=== PATIENT | female | born 2000 ===

== ENCOUNTER → 2020-12-16 | Outpatient (CLI) | payer SELFPAY ==
--- NOTE | 2020-12-16 19:08 | Diagnostic Imaging Report ---
EXAMINATION: Lumbosacral spine at 4:47 p.m. INDICATION: Leg and back pain. Five views were obtained. There are no prior studies available for comparison. FINDINGS: The lateral view shows the vertebral body heights and alignment to be generally within normal limits. There is very mild narrowing of the disc spaces at L4-L5 and L5-S1. The other intervertebral spaces seem fairly well maintained. The oblique views fail to show any sign of a pars defect. There is no fracture or acute bony abnormality appreciated. There is no paraspinal mass noted. There is mild symmetrical sclerosis of the sacroiliac joints. IMPRESSION: 1. There is no evidence for an acute bony abnormality. 2. There is very mild degenerative disc disease at L4-L5 and L5-S1. Dictated by: Dictated on workstation # [id number]
== END ==
LOC: RAD 16:02
PROVIDERS: ATTEND Family Medicine Sports Medicine
DX: M47.27 Other spondylosis with radiculopathy, lumbosacral region (principal)
CPT/HCPCS: 72110

== ENCOUNTER 2020-12-23 14:44 | Emergency (ER) | payer SELFPAY ==
[~2020-12-23] VITALS: Ht 157.5 cm; Wt 109.0 kg
[2020-12-23] MEDS ORDERED: KETOROLAC 30 MG/ML VIAL IM ONE (15:30)
[2020-12-23] MEDS ORDERED: ORPHENADRINE 60 MG/2 ML (NORFLEX) AMP (ED ONLY) IM ONE (15:30)
--- NOTE | 2020-12-23 15:36 | ED Back Pain ---
General Chief Complaint: Lower Extremity Stated Complaint: R LEG AND BACK PAIN Nursing Triage Note: PT AMB TO [facility] W REPORTS OF PAIN THAT BEGINS IN RIGHT LOWER BACK AND RADIATES DOWN HER RIGHT LEG THAT HAS BEEN ONGOING FOR SEVERAL MONTHS. PT A&OX4, TEARFUL DURING TRIAGE. Source of Information: Patient, Old Records Exam Limitations: No Limitations History of Present Illness Date Seen by Provider: Dec 23, 2020 Time Seen by Provider: 15:11 Initial Comments This 20-year-old young lady presents to the emergency room with complaints of lower back pain with pain that radiates into the right leg with associated numbness or a "atjg-yks-vnreyrw" sensation. Pain started a couple months ago but has been becoming progressively worse, especially in the last couple of days. She has been treated with muscle relaxers, steroids, and buwv-dev-dzjbnmn pain medications without significant improvement. She has worsening pain with movement and bending. She was sent to us from the [facility] because of concerns for possible early cauda equina syndrome. Patient described recent development of difficulty controlling her bladder. She believes some of this is due to trouble getting to the restroom in time because of pain. However, she also states it is simply getting harder and harder to hold her urine in her bladder. She also reports a decrease in sphincter control over the past few days and has had some minor incontinence of stool and flatus. She is still ambulatory with a limp. She has some minor decrease in sensation and strength in the right lower extremity. She denies any trauma. She had x-rays performed at this facility demonstrating some degenerative disease at L4-L5 and L5-S1. Allergies and Home Medications Allergies Coded Allergies: Milk Containing Products (Verified Allergy, Unknown, 12/23/20) banana (Verified Allergy, Unknown, 12/23/20) Patient Home Medication List Home Medication List Reviewed: Yes Cephalexin (Cephalexin) 500 Mg Tablet, 500 MG PO TID Prescribed by: CHARLINE LARA on 12/23/20 1617 Review of Systems Constitutional: no symptoms reported EENTM: no symptoms reported Respiratory: no symptoms reported Cardiovascular: no symptoms reported Gastrointestinal: see HPI Genitourinary: see HPI : No LMP: Dec 12, 2020 Musculoskeletal: see HPI Skin: no symptoms reported Psychiatric/Neurological: See HPI Past Nffpmqj-Qqwnpo-Wicitd Hx Patient Social History Tobacco Use?: No Use of E-Cig and/or Vaping dev: No Substance use?: No Alcohol Use?: No Immunizations Up To Date Influenza Vaccine Up-to-Date: No; Not Current First/Initial COVID19 Vaccinat: MAY 2020 Second COVID19 Vaccination Enrico: JUNE 2020 COVID19 Vaccine 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 Past Medical History Surgery/Hospitalization HX: SX: T&A Surgeries: Yes Adenoidectomy, Tonsillectomy Respiratory: No Cardiac: No Neurological: No : No Last Menstrual Period: Dec 12, 2020 Reproductive Disorders: No Genitourinary: No Gastrointestinal: No Musculoskeletal: No Endocrine: No HEENT: No Cancer: No Psychosocial: Yes Sleep Difficulties Integumentary: No Physical Exam Vital Signs Vital Signs - First Documented 12/23/20 14:57 Temp 36.5 Pulse 107 Resp 22 B/P (MAP) 132/88 (103) Pulse Ox 99 O2 Delivery Room Air Capillary Refill : Less Than 3 Seconds Height, Weight, BMI Height: '" Weight: lbs. oz. kg; 43.00 BMI Method: General Appearance: WD/WN, Mild Distress, Obese HEENT: PERRL/EOMI, Normal ENT Inspection Neck: Normal Inspection Cardiovascular: Regular Rate, Rhythm, No Edema, No Murmur Respiratory: Lungs Clear, Normal Breath Sounds, No Accessory Muscle Use Gastrointestinal: Normal Bowel Sounds, Non Tender, Soft Extremity: Normal Inspection, Non Tender, No Pedal Edema Neurologic/Psychiatric: Alert, Oriented x3, Normal Mood/Affect, soft tile setter II-XII Norm as Tested, Other (No detectable motor weakness of the lower extremities. Slight decrease in sensation of the proximal right lower extremity.) Skin: Normal Color, Warm/Dry Progress/Results/Core Measures Results/Orders Lab Results Laboratory Tests Test 12/23/20 15:43 Range/Units Urine Color YELLOW Urine Clarity SL CLOUDY Urine pH 6.5 5-9 Urine Specific Hamilton 1.015 L 1.016-1.022 Urine Protein NEGATIVE NEGATIVE Urine Glucose (UA) NEGATIVE NEGATIVE Urine Ketones NEGATIVE NEGATIVE Urine Nitrite POSITIVE H NEGATIVE Urine Bilirubin NEGATIVE NEGATIVE Urine Urobilinogen 1.0 < = 1.0 MG/DL Urine Leukocyte Esterase NEGATIVE NEGATIVE Urine RBC (Auto) TRACE-I H NEGATIVE Urine RBC 5-10 H /HPF Urine WBC 0-2 /HPF Urine Squamous Epithelial Cells 0-2 /HPF Urine Crystals NONE /LPF Urine Bacteria LARGE H /HPF Urine Casts NONE /LPF Urine Mucus NEGATIVE /LPF Urine Culture Indicated YES My Orders Orders - CHARLINE REEVES MD Orphenadrine Inj (Ed Only) (Norflex Inje (12/23/20 15:30) Fentanyl Inj (Sublimaze Injection) (12/23/20 15:45) Urine Bedside (12/23/20 15:39) Ua Culture If Indicated (12/23/20 15:43) Urine Culture (12/23/20 15:43) Medications Given in ED Current Medications Medications Dose Ordered Sig/Marek Route Start Time Stop Time Status Last Admin Dose Admin Fentanyl Citrate 50 mcg ONCE ONCE IM 12/23/20 15:45 12/23/20 15:46 DC 12/23/20 15:49 50 MCG Orphenadrine Citrate 60 mg ONCE ONCE IM 12/23/20 15:30 12/23/20 15:31 DC 12/23/20 15:49 60 MG Vital Signs/I&O 12/23/20 14:57 Temp 36.5 Pulse 107 Resp 22 B/P (MAP) 132/88 (103) Pulse Ox 99 O2 Delivery Room Air Blood Pressure Mean: 103 Progress Progress Note : Progress Note Patient was seen and examined. She did have some complaints in her history that could be interpreted as symptoms of cauda equina, in particular the description of difficulty controlling bowel and bladder function. MRI services are not available at this facility this week. I am recommending the patient be transferred to an MRI capable facility. Dr. Guzman at [facility] in [place] has accepted transfer. Patient is receiving injections of Norflex and fentanyl to help control pain in route. Patient is being instructed to go directly to the [facility] ER without eating or drinking. Patient expressed understanding of these instructions. Prior x-ray images are being clouded. UA did demonstrate possible urinary tract infection with presence of bacteria and nitrates. There were no WBCs noted. We will prescribe antibiotics for the patient to start if she is not admitted at [facility]. Departure Impression Primary Impression: Low back pain Qualified Codes: M54.41 - Lumbago with sciatica, right side Additional Impressions: Anal sphincter incontinence Urinary incontinence Qualified Codes: R32 - Unspecified urinary incontinence Urinary tract infection Qualified Codes: N39.0 - Urinary tract infection, site not specified Disposition: T-TRM HOSP Condition: Improved Transfer Transfer Reason: Exceeds level of care Time Spoke to Accepting Phy: 15:35 Transfer Progress Notes Case discussed with Dr. Guzman in the [facility] who accepts transfer Transfer Time: 16:32 Transfer Facility: [facility] emergency department Method of Transfer: Private Vehicle Departure-Patient Inst. Referrals: ALEXYS WAGGONER MD (PCP/Family) Primary Care Physician Patient Instructions: Cauda Equina Syndrome, Urinary Tract Infections in Adults Add. Discharge Instructions: Present directly to the [facility] emergency room for further evaluation and MRI of your lower back. Do not eat or drink anything in route to [facility]. When you present to the [facility] ER registration desk, tell them you are presenting as a "direct transfer by private vehicle from [place]". Unless instructed otherwise, complete the antibiotics you were prescribed from the [facility] to ER. Call with questions or concerns. All discharge instructions reviewed with patient and/or family. Voiced understanding. Scripts Cephalexin (Cephalexin) 500 Mg Tablet 500 MG PO TID, #21 TAB Prov: CHARLINE REEVES MD 12/23/20 CHARLINE REEVES MD Dec 23, 2020 15:35
[2020-12-23] MEDS ORDERED: fentaNYL INJ 100 MCG/2 ML AMP IM ONE (15:45)
[2020-12-23 15:56] LABS: BILIRUBIN,URINE NEGATIVE (NEGATIVE); CLARITY,URINE SL CLOUDY; COLOR,URINE YELLOW; GLUCOSE, URINE (UA) NEGATIVE (NEGATIVE); KETONES,URINE NEGATIVE (NEGATIVE); LEUKOCYTE ESTERASE ,URINE NEGATIVE (NEGATIVE); NITRITE,URINE POSITIVE (NEGATIVE); PH,URINE 6.5 (5-9); PROTEIN,URINE NEGATIVE (NEGATIVE)
[2020-12-23 16:03] LABS: BACTERIA,URINE LARGE /HPF; SQUAMOUS EPITHELIAL CELL,UR 0-2 /HPF; WBC,URINE 0-2 /HPF
[2020-12-23] MEDS ORDERED: CEPH500T PO (16:17)
[2020-12-23 16:32] VITALS: BP 118/87
== END 2020-12-23 16:32 | disposition short-term general hospital (02) ==
LOC: EDUNIT# 14:44 → ER 14:47
DX: M54.50 Low back pain, unspecified (principal); R15.9 Full incontinence of feces; R32 Unspecified urinary incontinence; N39.0 Urinary tract infection, site not specified; E66.9 Obesity, unspecified; Z68.41 Body mass index [BMI] 40.0-44.9, adult
CPT/HCPCS: 81000; 84703; 87077; 87088; 87186; 99284